=== PATIENT | female | born 1965 | race Caucasian/White ===

== ENCOUNTER 2019-09-22 12:23 | Emergency (ER) | payer OTHER, MEDICAID ==
[~2019-09-22] VITALS: Ht 167.6 cm; Wt 81.6 kg
[2019-09-22 13:00] VITALS: BP 142/86
== END 2019-09-22 14:59 | disposition left against medical advice (07) ==
LOC: ER 12:23 → EDBD 12:23 → ER 14:59
DX: F41.9 Anxiety disorder, unspecified (principal); Z53.21 Procedure and treatment not carried out due to patient leaving prior to being seen by health care provider
CPT/HCPCS: 93005

== ENCOUNTER 2023-10-24 06:48 | Inpatient (IN) | payer OTHER, MEDICAID ==
[~2023-10-24] VITALS: Ht 162.6 cm; Wt 93.7 kg
[2023-10-24] VITALS (9 sets, daily range): BP systolic 91–135; BP diastolic 56–64; PULSE 71–91; RESP 18–20; TEMP 98–99.2; O2SAT 90–100
[~2023-10-24 06:48] MED LIST: ALBUAER3 IN; ARIP2TAB PO; ATEN50TA19 PO; FLUO60TA PO; MONT-8 OR; PANT40TA2 PO; POTA8TAB38 PO; TRAZ-228 PO; UMEC1AER IN
[2023-10-24] MEDS ORDERED: ceFAZolin 2 GM/D5W100ml 100 ML IV ONE (06:51)
[2023-10-24] MEDS ORDERED: VANCOMYCIN HCL 1000 MG VL ONE (06:52)
[2023-10-24] MEDS ORDERED: TRANEXAMIC ACID 20 ML ONE (06:54)
[2023-10-24] MEDS ORDERED: BUPIVACAINE HCL 0.25% P/F 10 ML VIAL ONE (06:54)
[2023-10-24] MEDS ORDERED: MORPHINE SULF PF 5 MG/10 ML VIAL ONE (06:56)
[2023-10-24] MEDS ORDERED: KETOROLAC TROMETH 30 MG/ML 1ML VIAL ONE (06:56)
[2023-10-24] MEDS ORDERED: fentaNYL CITRATE 100 MCG/2 ML VL ONE (06:59)
[2023-10-24] MEDS ORDERED: MIDAZOLAM HCL 2MG/2ML 2ml VIAL (1mg/ml) ONE ×2 (06:59→07:38)
[2023-10-24] MEDS ORDERED: ONDANSETRON HCL 4 MG/2 ML VIAL ONE (07:00)
[2023-10-24] MEDS ORDERED: BUPIVACAINE W/ EPINEPH 0.25% INJ 50ML MDV IJ ONE (07:00)
[2023-10-24] MEDS ORDERED: PROPOFOL 10 MG/ML 20 ML IV ONE ×2 (07:00→08:34)
[2023-10-24] MEDS ORDERED: MORPHINE SULF PF 5 MG/10 ML VIAL IV ONE (07:00)
[2023-10-24] MEDS ORDERED: DexAMETHasone SOD PHOS 10MG/1ML VIAL INJ ONE (07:00)
[2023-10-24] MEDS ORDERED: VANCOMYCIN HCL 1000 MG VL IV ONE (07:00)
[2023-10-24] MEDS ORDERED: KETOROLAC TROMETH 30 MG/ML 1ML VIAL IV ONE (07:00)
[2023-10-24] MEDS ORDERED: SODIUM CHLORIDE LOCK 10 ML ONE (07:00)
[2023-10-24] MEDS ORDERED: TETRACAINE 1% INJ 2 ML VIAL IJ ONE (07:05)
[2023-10-24] MEDS ORDERED: EPINEPHrine HCL 1 MG/1 ML AMP ONE (07:10)
[2023-10-24] MEDS ORDERED: CELECOXIB 100 MG CAP ONE (07:22)
[2023-10-24] MEDS ORDERED: ACETAMINOPHEN IV 100 ML IV ONE (07:23)
[2023-10-24] MEDS ORDERED: PREGABALIN CAPSULE 75 MG CAP ONE (07:23)
[2023-10-24] MEDS ORDERED: ACETAMINOPHEN IV 1000 MG/100ML (10MG/ML) IV ONE (08:00)
[2023-10-24] MEDS ORDERED: PREGABALIN CAPSULE 75 MG CAP PO ONE (08:00)
[2023-10-24] MEDS ORDERED: CELECOXIB 100 MG CAP PO ONE (08:00)
[2023-10-24] MEDS ORDERED: MORPHINE SULFATE INJ 2 MG/ml SYRG IV PRN ×2 (08:15→09:15)
[2023-10-24] MEDS ORDERED: HYDROmorphone HCL 2 MG/ML VL/or syr IV PRN ×3 (08:15→09:15)
[2023-10-24] MEDS ORDERED: diphenhdrAMINE HCL 50 MG/1 ML VL IV PRN (08:15)
[2023-10-24] MEDS ORDERED: METOCLOPRAMIDE HCL 5MG/ml INJ 2ml VIAL IV PRN (08:15)
[2023-10-24] MEDS ORDERED: NALOXONE HCL 0.4 MG/ML VIAL IV PRN ×2 (08:15)
[2023-10-24] MEDS ORDERED: ceFAZolin 1GM/50ML 50 ML IV SCH (09:15)
[2023-10-24] MEDS ORDERED: ONDANSETRON HCL 4 MG/2 ML VIAL IV PRN (09:15)
[2023-10-24] MEDS ORDERED: NITROGLYCERIN 0.4 MG SL TAB SL PRN (09:15)
[2023-10-24] MEDS ORDERED: ACETAMINOPHEN 325 MG TAB PO PRN (09:15)
[2023-10-24] MEDS ORDERED: ALBUTEROL SULF HFA 90MCG INH 200DOSE IN SCH (09:15)
[2023-10-24] MEDS: PANTOPRAZOLE 40 MG TAB PO SCH (10:00)
[2023-10-24] MEDS: OXYCODONE W/ ACETAMINOPHEN 5/325MG TABLET PO PRN ×2 (12:39→19:55)
[2023-10-24] MEDS: ceFAZolin 1GM/50ML 50 ML IV SCH ×2 (13:34→20:38)
[2023-10-24] MEDS ORDERED: ePHEDrine SULFATE 50 MG/ML AMP IM ONE (16:15)
[2023-10-24] MEDS ORDERED: HYDROCORTISONE SOD SUCC 100 MG/2ML INJ VIAL IV ONE (16:15)
[2023-10-24 17:40] LABS: Potassium 3.7 mmol/L (3.5-5.1)
[2023-10-24 17:41] LABS: Calcium 8.7 mg/dL (8.7-10.4)
[2023-10-24] MEDS ORDERED: IPRATROPIUM BROM 0.5 MG/2.5ML INH SOL NEB ONE (17:45)
[2023-10-24] MEDS ORDERED: ALBUTEROL MEDNEB 2.5 mg/3ml NEB NEB ONE (17:45)
[2023-10-24 17:46] LABS: BUN/Creatinine Ratio 8.6 (10.0-20.0)
[2023-10-24] MEDS: LACTATED RINGER'S 1,000 ML IV SCH ×2 (19:15→20:19)
[2023-10-24] MEDS: SODIUM CHLOR 0.9% PF (SALINE LOCK) 10ML VIAL/SYR IV SCH (21:35)
[2023-10-24] MEDS: traZODone HCL 50 MG TAB PO SCH (21:36)
[2023-10-24] MEDS: DOCUSATE SOD 100 MG CAP PO SCH (21:38)
[2023-10-25] VITALS (14 sets, daily range): BP systolic 88–115; BP diastolic 51–67; PULSE 72–85; RESP 16–20; TEMP 98.5–99; O2SAT 84–96
[2023-10-25] MEDS: OXYCODONE W/ ACETAMINOPHEN 5/325MG TABLET PO PRN ×5 (00:03→21:18)
[2023-10-25] MEDS: LACTATED RINGER'S 1,000 ML IV SCH (05:15)
[2023-10-25] MEDS: SODIUM CHLOR 0.9% PF (SALINE LOCK) 10ML VIAL/SYR IV SCH ×4 (06:00→21:19)
[2023-10-25 07:31] LABS: Hematocrit 28.9 % (36.0-46.0); Hemoglobin 9.6 g/dL (12.2-16.2)
[2023-10-25] MEDS: ceFAZolin 1GM/50ML 50 ML IV SCH ×3 (07:44→14:18)
[2023-10-25] MEDS: ANORO ELLIPTA IN SCH (08:02)
[2023-10-25] MEDS: CHLORTHALIDONE PO SCH (08:03)
[2023-10-25] MEDS: ATENOLOL PO SCH (08:03)
[2023-10-25] MEDS: ARIPIPRAZOLE 2 MG PO SCH (08:03)
[2023-10-25] MEDS: MONTELUKAST SODIUM 10 MG TAB PO SCH (09:15)
[2023-10-25] MEDS: ENOXAPARIN SOD 40 MG/0.4 ML SYRINGE SC SCH (09:15)
[2023-10-25] MEDS: DOCUSATE SOD 100 MG CAP PO SCH ×2 (09:15→21:18)
[2023-10-25] MEDS: FLUoxetine HCL 20 MG CAP PO SCH (09:15)
[2023-10-25] MEDS: POTASSIUM CHLORIDE 8 MEQ TAB PO SCH (09:15)
[2023-10-25] MEDS: PANTOPRAZOLE 40 MG TAB PO SCH (09:15)
[2023-10-25] MEDS: traZODone HCL 50 MG TAB PO SCH (21:18)
[2023-10-25] MEDS: ALBUTEROL MEDNEB 2.5 mg/3ml NEB NEB SCH (22:00)
[2023-10-25] MEDS: IPRATROPIUM BROM 0.5 MG/2.5ML INH SOL NEB SCH (22:00)
[2023-10-26] VITALS (8 sets, daily range): BP systolic 101–104; BP diastolic 63–71; PULSE 77–88; RESP 16–20; TEMP 97–98.4; O2SAT 92–99
[2023-10-26] MEDS: OXYCODONE W/ ACETAMINOPHEN 5/325MG TABLET PO PRN (04:58)
[2023-10-26] MEDS: SODIUM CHLOR 0.9% PF (SALINE LOCK) 10ML VIAL/SYR IV SCH (06:00)
[2023-10-26] MEDS: ALBUTEROL MEDNEB 2.5 mg/3ml NEB NEB SCH ×2 (06:24→10:00)
[2023-10-26] MEDS: IPRATROPIUM BROM 0.5 MG/2.5ML INH SOL NEB SCH ×2 (06:25→10:50)
[2023-10-26 07:35] LABS: Hematocrit 29.2 % (36.0-46.0); Hemoglobin 9.8 g/dL (12.2-16.2)
[2023-10-26] MEDS: CHLORTHALIDONE PO SCH (10:00)
[2023-10-26] MEDS: ANORO ELLIPTA IN SCH (10:00)
[2023-10-26] MEDS: ARIPIPRAZOLE 2 MG PO SCH (10:00)
[2023-10-26] MEDS: ATENOLOL PO SCH (10:00)
[2023-10-26] MEDS ORDERED: ALBUTEROL SULF 2.5 MG/0.5ML(0.5%) NEB SOLN ONE (10:16)
[2023-10-26] MEDS: MONTELUKAST SODIUM 10 MG TAB PO SCH (10:19)
[2023-10-26] MEDS: PANTOPRAZOLE 40 MG TAB PO SCH (10:19)
[2023-10-26] MEDS: DOCUSATE SOD 100 MG CAP PO SCH (10:19)
[2023-10-26] MEDS: POTASSIUM CHLORIDE 8 MEQ TAB PO SCH (10:19)
[2023-10-26] MEDS: ENOXAPARIN SOD 40 MG/0.4 ML SYRINGE SC SCH (10:19)
[2023-10-26] MEDS: FLUoxetine HCL 20 MG CAP PO SCH (10:19)
== END 2023-10-26 13:50 | disposition home health service (06) | DRG 470 ==
LOC: SUR 06:48 → TELE 09:06 → TELE-EAST 18:28
PROVIDERS: ADMIT Orthopaedic Surgery Adult Reconstructive Orthopaedic Surgery; ATTEND Orthopaedic Surgery Adult Reconstructive Orthopaedic Surgery
PROC: 8E0YXBZ Computer Assisted Procedure of Lower Extremity (ICD-10-PCS; 2023-10-24)
PROC: 0SR90JZ Replacement of Right Hip Joint with Synthetic Substitute, Open Approach (ICD-10-PCS; principal; 2023-10-24 07:33)
DX: M16.11 Unilateral primary osteoarthritis, right hip (principal); F41.9 Anxiety disorder, unspecified; J44.9 Chronic obstructive pulmonary disease, unspecified; I10 Essential (primary) hypertension; Z90.710 Acquired absence of both cervix and uterus; Z79.899 Other long term (current) drug therapy; Z72.0 Tobacco use
CPT/HCPCS: 36415; 72170; 73502; 80069; 85014; 85018; 86850; 86900; 86901; 94640; 97116; 97163; 97530; G0378; J0131; J0171; J0690; J1100; J1885; J2250; J2405; J2704; J3490